=== PATIENT | female | born 1970 | race Hispanic/Latino ===

== ENCOUNTER 2021-10-20 10:00 | Inpatient (IN) | payer OTHER ==
[2021-10-20] VITALS (8 sets, daily range): BP systolic 93–138; BP diastolic 54–74
[~2021-10-20] VITALS: Ht 162.6 cm; Wt 58.3 kg
[2021-10-20 10:18] LABS: BASOPHILS % (AUTO) 0.1 % (0.0-5.0); HEMATOCRIT 45.1 % (36-48); LYMPHOCYTES % (AUTO) 10.7 % (21.0-51.0); MEAN CORPUSCULAR HEMOGLOBIN 27.6 pg (27.0-33.0); MEAN CORPUSCULAR HGB CONC 34.8 g/dL (32.0-36.0); MEAN CORPUSCULAR VOLUME 79.4 fL (79-99); MONOCYTES % (AUTO) 7.2 % (3.0-13.0); NEUTROPHILS % (AUTO) 81.5 % (40.0-77.0); PLATELET COUNT (AUTO) 624 K/uL (130-400); RED BLOOD CELL COUNT(AUTO) 5.68 MIL/uL (4.00-5.50); RED CELL DISTRIBUTION WIDTH 12.1 % (11.0-15.5); WHITE BLOOD COUNT (AUTO) 14.4 K/uL (4.8-10.8)
[2021-10-20 10:27] LABS: APPEARANCE,URINE CLEAR (CLEAR); BILIRUBIN,URINE SMALL (NEGATIVE); COLOR,URINE YELLOW (YELLOW); GLUCOSE, URINE (UA) >=1000 mg/dL (NEGATIVE); KETONES,URINE >=80 mg/dL (NEGATIVE); LEUKOCYTE ESTERASE ,URINE NEGATIVE (NEGATIVE); NITRATE,URINE NEGATIVE (NEGATIVE); OCCULT BLOOD,URINE TRACE-INTACT (NEGATIVE); PH,URINE 5.5 (5.0-8.0); PROTEIN,URINE TRACE mg/dL (NEGATIVE); UROBILINOGEN,URINE 0.2 mg/dL (0.2-1.0)
[2021-10-20] MEDS ORDERED: 0.9%NACL 1000ML 1,000 ML IV SCH ×3 (10:30→15:00)
[2021-10-20 10:31] LABS: ABG BASE EXCESS -10.5 mmol/L (-2.0-3.0); ABG OXYGEN SATURATION 96.3 % (95.0-99.0); ABG PCO2 33 mmHg (32-45)
[2021-10-20 10:32] LABS: BACTERIA,URINE Rare /HPF (None Seen); RBC,URINE 0-1 /HPF (0-1); WBC,URINE 0-1 /HPF (0-1); YEAST,URINE BUDDING Many /HPF (None Seen)
[2021-10-20 10:33] LABS: SQUAMOUS EPITHELIAL CELL,UR Few /HPF (0-2)
[2021-10-20 10:37] LABS: AMPHET/METH SCREEN,URINE NEGATIVE (NEGATIVE); BARBITURATE SCREEN, URINE NEGATIVE (NEGATIVE); BENZODIAZEPINES SCREEN,URINE NEGATIVE (NEGATIVE); CANNABINOID SCREEN,URINE NEGATIVE (NEGATIVE); COCAINE SCREEN,URINE NEGATIVE (NEGATIVE); OPIATE SCREEN,URINE NEGATIVE (NEGATIVE); PHENCYCLIDINE SCREEN,URINE NEGATIVE (NEGATIVE)
[2021-10-20 10:41] LABS: ALBUMIN 3.3 g/dL (3.5-5.0); CREATININE 1.2 mg/dL (0.5-1.5); MAGNESIUM 2.1 mg/dL (1.80-2.40); POTASSIUM 4.3 mmol/L (3.5-5.1); TOTAL PROTEIN, SERUM 8.6 g/dL (6.0-8.3)
[2021-10-20 10:44] LABS: ABG OXYGEN SATURATION 72.2 % (95.0-99.0); HCO3,VENOUS BLOOD GAS 15.5 (21.0-28.0); PCO2,VENOUS BLOOD GAS 37 (32-45); PH,VENOUS BLOOD GAS 7.244 (7.350-7.450)
[2021-10-20] MEDS ORDERED: POTASSIUM CHLORIDE 10MEQ/100ML 100 ML IV PRN (11:00)
[2021-10-20] MEDS ORDERED: DEXTROSE 5 %-0.45 % NACL 1,000 ML IV PRN ×2 (11:00→15:00)
[2021-10-20] MEDS ORDERED: INSULIN HUMULIN R 100 UNIT/ML 3ML IV SCH (11:00)
[2021-10-20] MEDS ORDERED: INSULIN HUMULIN R 100 UNIT/ML 3ML IV ONE (11:00)
[2021-10-20] MEDS ORDERED: INSULIN REGULAR, HUMAN 3ML 100 UNIT in 0.9%NACL 100ML 99 ML IV PRN ×2 (11:00)
[2021-10-20] MEDS: DEXTROSE 5 %-0.45 % NACL 1,000 ML IV PRN (14:25)
[2021-10-20] MEDS ORDERED: ACETAMINOPHEN 325 MG TAB PO PRN ×4 (15:00)
[2021-10-20] MEDS ORDERED: LACTULOSE 20 GM/30 ML UDCUP PO PRN ×2 (15:00)
[2021-10-20] MEDS ORDERED: MORPHINE 2 MG SYG IV PRN ×2 (15:00→15:30)
[2021-10-20] MEDS ORDERED: NITROGLYCERIN 0.4 MG SL TAB SL PRN ×2 (15:00)
[2021-10-20] MEDS ORDERED: MORPHINE 4 MG SYG IV PRN ×2 (15:00→15:30)
[2021-10-20] MEDS ORDERED: ONDANSETRON 4MG INJ IV PRN ×2 (15:00)
[2021-10-20 15:10] LABS: CREATININE 0.9 mg/dL (0.5-1.5); MAGNESIUM 1.7 mg/dL (1.80-2.40); POTASSIUM 3.4 mmol/L (3.5-5.1)
[2021-10-20] MEDS: 0.9%NACL 1000ML 1,000 ML IV SCH ×3 (15:16→21:48)
[2021-10-20 18:31] LABS: CREATININE 0.8 mg/dL (0.5-1.5); POTASSIUM 3.2 mmol/L (3.5-5.1)
[2021-10-20] MEDS ORDERED: FAMOTIDINE 20MG VIAL IV SCH (21:00)
[2021-10-20] MEDS: FAMOTIDINE 20MG VIAL IV SCH (21:14)
[2021-10-20] MEDS: POTASSIUM CHLORIDE 10MEQ/100ML 100 ML IV PRN ×2 (23:02→23:59)
[2021-10-20 23:17] LABS: CREATININE 0.8 mg/dL (0.5-1.5); MAGNESIUM 1.7 mg/dL (1.80-2.40)
[2021-10-20 23:22] LABS: POTASSIUM 2.9 mmol/L (3.5-5.1)
[2021-10-21] VITALS (38 sets, daily range): BP systolic 99–152; BP diastolic 55–73
[2021-10-21 04:10] LABS: CREATININE 0.7 mg/dL (0.5-1.5); MAGNESIUM 1.6 mg/dL (1.80-2.40)
[2021-10-21 04:54] LABS: POTASSIUM 2.8 mmol/L (3.5-5.1)
[2021-10-21] MEDS ORDERED: POTASSIUM CHLORIDE 10MEQ/100ML 100 ML IV ONE ×2 (05:12)
[2021-10-21] MEDS: POTASSIUM CHLORIDE 10MEQ/100ML 100 ML IV PRN ×2 (05:30→05:32)
[2021-10-21] MEDS: DEXTROSE 5 %-0.45 % NACL 1,000 ML IV PRN (06:20)
[2021-10-21] MEDS ORDERED: MAGNESIUM 2GM PREMIX 50ML 50 ML IV PRN (08:00)
[2021-10-21] MEDS ORDERED: KCL 20 MEQ ERTAB PO ONE (08:30)
[2021-10-21] MEDS: FAMOTIDINE 20MG VIAL IV SCH (08:53)
[2021-10-21] MEDS: ENOXAPARIN SODIUM 40 MG/0.4 ML SYRINGE SQ SCH (08:55)
[2021-10-21] MEDS ORDERED: ENOXAPARIN SODIUM 40 MG/0.4 ML SYRINGE SQ SCH (09:00)
[2021-10-21 09:12] LABS: CREATININE 0.6 mg/dL (0.5-1.5); MAGNESIUM 1.7 mg/dL (1.80-2.40); POTASSIUM 3.1 mmol/L (3.5-5.1)
[2021-10-21] MEDS: INSULIN HUMULIN R 100 UNIT/ML 3ML SQ SCH ×5 (12:34→20:44)
[2021-10-21 18:30] LABS: CREATININE 0.5 mg/dL (0.5-1.5); POTASSIUM 3.1 mmol/L (3.5-5.1)
[2021-10-21 18:33] LABS: MAGNESIUM 2.1 mg/dL (1.80-2.40)
[2021-10-21] MEDS: INSULIN GLARGINE 100 UNITS/ML 10 ML VIAL SQ SCH (20:43)
[2021-10-21] MEDS: FAMOTIDINE 20MG TAB PO SCH (20:46)
[2021-10-22] VITALS: BP 90/52
[2021-10-22 04:00] VITALS: BP 131/73
[2021-10-22 05:58] LABS: BASOPHILS % (AUTO) 0.1 % (0.0-5.0); EOSINOPHILS % (AUTO) 0.9 % (0.0-8.0); HEMATOCRIT 36.8 % (36-48); LYMPHOCYTES % (AUTO) 26.7 % (21.0-51.0); MEAN CORPUSCULAR HEMOGLOBIN 27.5 pg (27.0-33.0); MEAN CORPUSCULAR HGB CONC 34.8 g/dL (32.0-36.0); MEAN CORPUSCULAR VOLUME 79.1 fL (79-99); MONOCYTES % (AUTO) 8.8 % (3.0-13.0); PLATELET COUNT (AUTO) 405 K/uL (130-400); RED BLOOD CELL COUNT(AUTO) 4.65 MIL/uL (4.00-5.50); RED CELL DISTRIBUTION WIDTH 12.4 % (11.0-15.5)
[2021-10-22] MEDS: INSULIN HUMULIN R 100 UNIT/ML 3ML SQ SCH ×7 (06:20→21:57)
[2021-10-22 06:26] LABS: ALBUMIN 2.4 g/dL (3.5-5.0); ASPARTATE AMINOTRANSFERASE 7 U/L (10-37); CARBON DIOXIDE 27 mmol/L (21-32); CHLORIDE 102 mmol/L (101-111); CREATININE 0.4 mg/dL (0.5-1.5); GLOMERULAR FILTR. RATE CALC 179 mL/min (>60); GLUCOSE,RANDOM 266 mg/dL (70-105); PHOSPHORUS 2.6 mg/dL (2.5-4.9); SODIUM SERUM 136 mmol/L (136-145); TOTAL PROTEIN, SERUM 6.1 g/dL (6.0-8.3); UREA NITROGEN, BLOOD 14 mg/dL (7-18)
[2021-10-22 06:54] LABS: ALANINE AMINOTRANSFERASE < 6 U/L (12-78); POTASSIUM 2.9 mmol/L (3.5-5.1)
[2021-10-22] MEDS ORDERED: KCL 20 MEQ ERTAB PO ONE ×2 (06:57→07:04)
[2021-10-22] MEDS ORDERED: POTASSIUM CHLORIDE 10% ELIXIR 20 MEQ/15 ML UDCUP PO PRN (07:00)
[2021-10-22 08:00] VITALS: BP 126/73
[2021-10-22] MEDS: FAMOTIDINE 20MG TAB PO SCH ×2 (09:23→21:58)
[2021-10-22] MEDS: ENOXAPARIN SODIUM 40 MG/0.4 ML SYRINGE SQ SCH (09:24)
[2021-10-22] MEDS: KCL 20 MEQ ERTAB PO PRN ×3 (09:24→14:53)
[2021-10-22] MEDS: POTASSIUM CHLORIDE 10MEQ/100ML 100 ML IV PRN (09:24)
[2021-10-22 12:00] VITALS: BP 131/74
[2021-10-22 16:00] VITALS: BP 104/68
[2021-10-22 19:00] VITALS: BP 118/65
[2021-10-22] MEDS: INSULIN GLARGINE 100 UNITS/ML 10 ML VIAL SQ SCH (21:58)
[2021-10-23] VITALS: BP 125/71
[2021-10-23 04:00] VITALS: BP 121/72
[2021-10-23 05:20] LABS: BASOPHILS % (AUTO) 0.1 % (0.0-5.0); EOSINOPHILS % (AUTO) 1.3 % (0.0-8.0); HEMATOCRIT 33.7 % (36-48); LYMPHOCYTES % (AUTO) 35.4 % (21.0-51.0); MEAN CORPUSCULAR HEMOGLOBIN 27.6 pg (27.0-33.0); MEAN CORPUSCULAR VOLUME 78.9 fL (79-99); MONOCYTES % (AUTO) 9.7 % (3.0-13.0); NEUTROPHILS % (AUTO) 53.1 % (40.0-77.0); PLATELET COUNT (AUTO) 384 K/uL (130-400); RED BLOOD CELL COUNT(AUTO) 4.27 MIL/uL (4.00-5.50); RED CELL DISTRIBUTION WIDTH 12.4 % (11.0-15.5); WHITE BLOOD COUNT (AUTO) 7.4 K/uL (4.8-10.8)
[2021-10-23 05:36] LABS: ALBUMIN 2.2 g/dL (3.5-5.0); CREATININE 0.4 mg/dL (0.5-1.5); POTASSIUM 3.4 mmol/L (3.5-5.1)
[2021-10-23] MEDS: INSULIN HUMULIN R 100 UNIT/ML 3ML SQ SCH ×4 (05:59→12:12)
[2021-10-23] MEDS: KCL 20 MEQ ERTAB PO PRN ×2 (06:30→10:27)
[2021-10-23 08:00] VITALS: BP 97/66
[2021-10-23] MEDS: FAMOTIDINE 20MG TAB PO SCH (08:27)
[2021-10-23] MEDS: ENOXAPARIN SODIUM 40 MG/0.4 ML SYRINGE SQ SCH (08:28)
[2021-10-23] MEDS ORDERED: METF-444 PO (11:47)
[2021-10-23] MEDS ORDERED: PIOG15TA66 PO (11:47)
[2021-10-23 12:00] VITALS: BP 99/57
== END 2021-10-23 14:00 | disposition home or self-care (01) | DRG 637 ==
LOC: EDH 10:00 → EDHIP 10:01 → 2BH 21:17 → 3CH 10-21 18:36
PROVIDERS: ADMIT Internal Medicine; ATTEND Internal Medicine
DX: E11.10 Type 2 diabetes mellitus with ketoacidosis without coma (principal); U07.1 COVID-19; N17.9 Acute kidney failure, unspecified; E78.00 Pure hypercholesterolemia, unspecified; E86.1 Hypovolemia; E83.42 Hypomagnesemia; E87.6 Hypokalemia; E83.39 Other disorders of phosphorus metabolism; I10 Essential (primary) hypertension
CPT/HCPCS: 36415; 36600; 80048; 80053; 80305; 81001; 82010; 82435; 82803; 82947; 82948; 83605; 83735; 84100; 84132; 84145; 84295; 84484; 85025; 87635; 93005; 99291; C9803; G0378; J1650; J1815; J3475; J3490; J7042